=== PATIENT | male | born 1965 | race Caucasian/White ===

== ENCOUNTER 2019-08-21 09:25 | Emergency (ER) | payer OTHER ==
[2019-08-21 09:47] VITALS: BP 130/89
--- NOTE | 2019-08-21 10:42 | UC ---
Upper Extremity HPI - HPI Summary HPI Summary: 54 yo working on moving logs yesterday, when his glove got caught in the bark of log he was rolling towards him, torquing his fingers into hyperextension. Increased pain and swelling in the index finger of the right hand. - History of Current Complaint Chief Complaint: UCUpperExtremity Stated Complaint: FINGER INJURY Time Seen by Provider: 08/21/19 10:34 Hx Obtained From: Patient Onset/Duration: Sudden Onset, Lasting Hours Severity Initially: Moderate Severity Currently: Moderate Pain Intensity: 9 Aggravating Factor(s): Movement Alleviating Factor(s): Ice Associated Signs And Symptoms: Positive: Swelling Related History: Dominant Hand Right - Allergies/Home Medications Allergies/Adverse Reactions: Allergies Allergy/AdvReac Type Severity Reaction Status Date / Time No Known Allergies Allergy Verified 05/28/19 21:10 PMH/Surg Hx/FS Hx/Imm Hx Previously Healthy: Yes Cardiovascular History: Hypertension - Surgical History Surgical History: Yes Surgery Procedure, Year, and Place: undescended testicle repair as a child - Family History Known Family History: Positive: Hypertension - Social History Occupation: Employed Full-time Lives: With Family Alcohol Use: Occasionally Substance Use Type: None Smoking Status (MU): Never Smoked Tobacco - Immunization History Most Recent Tetanus Shot: within 5 years Review of Systems All Other Systems Reviewed And Are Negative: Yes Constitutional: Positive: Fatigue Skin: Positive: Negative Eyes: Positive: Negative ENT: Positive: Negative Respiratory: Positive: Negative Cardiovascular: Positive: Negative Gastrointestinal: Positive: Negative Genitourinary: Positive: Negative Motor: Positive: Negative Musculoskeletal: Positive: Arthralgia, Decreased ROM Neurological: Positive: Negative Psychological: Positive: Negative Is Patient Immunocompromised?: No Physical Exam Triage Information Reviewed: Yes Appearance: Well-Appearing, Pain Distress - mild Vital Signs: Initial Vital Signs Temp 98.6 F 08/21/19 09:40 Pulse 70 08/21/19 09:40 Resp 16 08/21/19 09:40 BP 130/89 08/21/19 09:40 Pulse Ox 99 08/21/19 09:40 ENT: Positive: Normal ENT inspection Respiratory: Positive: Lungs clear, Normal breath sounds Cardiovascular: Positive: RRR, No Murmur Musculoskeletal Exam: Other - swelling second and third digits of right hand, with tense swelling without bruising Full ROM in wrist. Normal radial pulse with normal perfusion of the hand Musculoskeletal: Positive: Strength Intact, ROM Limited @ - second digit right hand decreased flexion at PIP and DIP joints Neurological Exam: Normal Diagnostics - Radiology No standard instances Radiology Interpretation Completed By: Radiologist - Patient Name: MINE RENTERIA Medical Record#: [id number] Ordering Physician: Vicky Stevenson MD Acct.#: [id number] : 1965 Age: 54 Sex: M Location: [facility] Exam Date: 08/21/19 1043 ADM Status: REG ER Order Information: FINGER RIGHT 2ND ( INDEX) Accession Number: [id number] CPT: 44173 INDICATION: Finger injury. Pain at MCP joint TECHNIQUE: 3 views of the second finger were obtained. FINDINGS: There is questionable cortical disruption along the radial base of the second proximal phalanx. Anatomic alignment is maintained. The joint spaces are grossly preserved. The bone mineralization is within normal limits. IMPRESSION: IMPRESSION: QUESTIONABLE CORTICAL DISRUPTION AT THE BASE OF THE SECOND PROXIMAL PHALANX ABOVE. FOLLOW-UP RADIOGRAPH IN 7-10 DAYS IS RECOMMENDED. _ <Electronically signed by Arturo Sim MD in OV> 08/21/19 1105 Dictated By: Arturo Sim MD Dictated Date/Time: 08/21/19 1102 Transcribed Date/Time: 08/21/19 1102 Copy to: CC:Vicky Stevenson MD; Karen Medel MD Imaging - [facility] Imaging - [facility] Imaging - [facility] [address] [address] ph [phone]) ph ([phone]) ph ([phone]) This report is only to be considered final once signed by the Provider(s) as displayed in the "<Electronically Signed by >" field (s). Absence of a signature indicates the report is in a draft status and still needs to be finalized. In the event this document was created by someone other than the signing Provider, the individual initiating the document will be listed in the "Entered by:" or "Dictated by:" fontenot. 1 of 1 Upper Extremity Course/Dx - Course Course Of Treatment: perez taping, ortho referral for follow up. Discussed tendons appear intact but advise follow up. - Differential Dx/Diagnosis Differential Diagnosis/HQI/PQRI: Contusion, Fracture (Closed) Provider Diagnosis: Fracture of phalanx of finger of right hand Discharge ED - Sign-Out/Discharge Documenting (check all that apply): Patient Departure All imaging exams completed and their final reports reviewed: Yes - Discharge Plan Condition: Good Disposition: HOME Patient Education Materials: Finger Fracture (ED) Referrals: Karen Medel MD [Primary Care Provider] - Additional Instructions: Continue perez taping of the fingers for support and healing, with follow up by orthopedic hand surgeon in about 7 to 10 days. Use ibuprofen as needed for control of pain. - Billing Disposition and Condition Condition: GOOD Disposition: Home
== END 2019-08-21 11:24 | disposition home or self-care (01) ==
LOC: UCEAST 09:25
DX: S62.610A Displaced fracture of proximal phalanx of right index finger, initial encounter for closed fracture (principal); I10 Essential (primary) hypertension; R53.83 Other fatigue; X50.0XXA Overexertion from strenuous movement or load, initial encounter; Y93.89 Activity, other specified; Y92.9 Unspecified place or not applicable
CPT/HCPCS: 73140; 99211; G0463

== ENCOUNTER 2019-09-14 13:36 | Day surgery (SDC) | payer OTHER ==
[~2019-09-14 13:36] MED LIST: Buffered Lidocaine 1% SYRIN* 1 ML/SYRINGE INTRADERM ONE; Lactated Ringers 1000 ML Bag* 1,000 ML IV SCH
[2019-09-14] MEDS ORDERED: ceFAZolin 2 GM PREMIX in ORs 2 GM/50 ML BAG ONE (13:55)
[2019-09-14] MEDS ORDERED: fentaNYL* 50 MCG/ML 2 ML VIAL (100 MCG VIAL) ONE (16:22)
[2019-09-14] MEDS ORDERED: Midazolam* 1 MG/ML 2 ML VIAL (2 MG) ONE (16:22)
[2019-09-14] MEDS ORDERED: Bupivacaine 0.25% SDV* 30 ML ONE (17:11)
[2019-09-14] MEDS ORDERED: Lidocaine 2% PF * 5 ML VIAL ONE (17:32)
[2019-09-14] MEDS ORDERED: Ondansetron INJ* 2 MG/ML VIAL ONE (17:32)
[2019-09-14] MEDS ORDERED: Propofol* 10 MG/ML 20 ML BTL ONE (17:32)
[2019-09-14] MEDS ORDERED: Ketorolac INJ* 30 MG/ML 1 ML VIAL ONE (17:32)
[2019-09-14] MEDS ORDERED: Dexamethasone IV* 4 MG/ML 1 ML (4 MG) ONE (17:32)
[2019-09-14] MEDS ORDERED: Acetaminophen TAB* 325 MG PO PRN (18:00)
[2019-09-14] MEDS ORDERED: HYDROmorphone INJ1* 1 MG/ML SYRINGE IV PRN (18:00)
[2019-09-14] MEDS ORDERED: HYDROcodone/ACETAMIN 5-325 MG* 1 TAB PO PRN (18:00)
[2019-09-14] MEDS ORDERED: Naloxone* 0.4 MG/ML 1 ML VIAL IV PRN (18:00)
[2019-09-14] MEDS ORDERED: Adenosine* 3 MG/ML VIAL ONE (18:14)
[2019-09-14 19:05] VITALS: BP 145/90
--- NOTE | 2019-09-15 00:25 | OP ---
DATE OF OPERATION: 09/14/19 - [facility] DATE OF : 65 SURGEON: Mendoza Chavez MD. FLAT IRONER: CONCEPCION Puga. ANESTHESIOLOGIST: Dr. Beltrán. ANESTHESIA: General. PRE-OP DIAGNOSIS: Right index finger metacarpophalangeal joint radial collateral ligament tear. POST-OP DIAGNOSIS: Right index finger metacarpophalangeal joint radial collateral ligament tear. OPERATIVE PROCEDURE: Repair of right index finger metacarpophalangeal joint radial collateral ligament, DePuy Mini Mitek Suture Snyder. INDICATIONS: Mynor has the tear, some instability. MRI confirmed a full- thickness tear. We talked about options. He wanted to have it repaired. 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 He understands those risks associated with this. He wants to proceed. ESTIMATED BLOOD LOSS: 2 mL. COMPLICATIONS: None. FINDINGS: See above and below. DESCRIPTION OF PROCEDURE: Mr. Gilliam was seen in the preoperative holding area. The correct side, site, and procedure were identified. We came back to the operating room. The arm was prepped and draped in the usual fashion and a time -out was performed. The arm was exsanguinated with the Esmarch and the tourniquet was inflated. I made a 3 to 4 cm incision in the mid axial line over the radial collateral ligament of the index finger. Dissection was carried down. The extensor tendon was retracted dorsally. Just a tiny bit of the radial sagittal band was released distally to get good visualization of the ligament. I cleaned up the scar tissues that was forming at the insertion site of the radial collateral ligament. I prepared the bone. I then placed 1 DePuy Mini Mitek Suture Snyder right in the footprint of the ligament. I whipstitched up into the collateral ligament and then tied this off getting excellent [id number] apposition. I augmented the repair with several peripheral 3-0 Ethibond sutures. At this point, there was excellent stability and good MCP joint flexion. At 90 degrees of flexion, there was excellent stability. The wound was irrigated out. The tendon was repaired with a 4-0 PDS suture. The skin was closed with 4-0 nylon suture. A 0.25% Marcaine was then infiltrated. A short arm splint down to the fingertips grabbing the index and middle fingers wrapping around the index finger and protecting that radial collateral ligament was applied. He was taken to the recovery room in stable condition. [id number]/[facility] #: [id number] JOHNATHAN
== END 2019-09-14 19:15 | disposition home or self-care (01) ==
LOC: OREAST 13:36
PROVIDERS: ATTEND Orthopaedic Surgery Hand Surgery
PROC: 0MQ70ZZ Repair Right Hand Bursa and Ligament, Open Approach (ICD-10-PCS; principal; 2019-09-14 15:30)
DX: S63.650D Sprain of metacarpophalangeal joint of right index finger, subsequent encounter (principal); R94.31 Abnormal electrocardiogram [ECG] [EKG]; I44.4 Left anterior fascicular block; E78.5 Hyperlipidemia, unspecified; I10 Essential (primary) hypertension; X58.XXXD Exposure to other specified factors, subsequent encounter
CPT/HCPCS: 93005; C1713; J0153; J0690; J1100; J1885; J2250; J2405; J2704; J3010; J3490